=== PATIENT | female | born 1985 | race African-American/Black ===

== ENCOUNTER 2020-09-14 02:53 | Emergency (ER) | payer SELFPAY ==
--- NOTE | 2020-09-14 03:16 | ED General ---
General Stated Complaint: ANXIETY Source of Information: Patient History of Present Illness Date Seen by Provider: Sep 14, 2020 Time Seen by Provider: 03:00 Initial Comments 35 y/o female presents via EMS w c/o shortness of air and anxiety. States that she misses her mother (who in January) and with Thanksgiving passing recently it made it worse. Denies recent illness, fever or chills or cough. History of anxiety and panic attacks, was on medication, but no longer. Similar symptoms in the past. Allergies and Home Medications Allergies Coded Allergies: No Known Drug Allergies (Unverified , 09/14/20) Home Medications Hydroxyzine Pamoate 25 Mg Capsule, 25 MG PO Q8H PRN for ANXIETY Prescribed by: JERALD FERNANDEZ on 09/14/20 0320 Patient Home Medication List Home Medication List Reviewed: Yes Review of Systems Review of Systems Constitutional: No dizziness, No fever, No malaise, No weakness EENTM: No blurred vision, No double vision, No vision loss, No nose congestion, No throat pain, No throat swelling Respiratory: see HPI; No cough, No hemoptysis, No orthopnea, No phlegm; short of breath; No stridor, No wheezing Cardiovascular: No chest pain, No edema, No palpitations, No syncope Gastrointestinal: No abdominal pain, No nausea, No vomiting Musculoskeletal: No back pain, No joint pain Skin: No change in color, No rash Psychiatric/Neurological: Anxiety, Depressed, Emotional Problems Past Mtuwqfo-Ewksrb-Rfjoir Hx Past Med/Social Hx: Reviewed Nursing Past Med/Soc Hx Patient Social History Recent Foreign Travel: No Contact w/Someone Who Travel: No Physical Exam Vital Signs Capillary Refill : Height, Weight, BMI Height: '" Weight: lbs. oz. kg; BMI Method: General Appearance: Anxious HEENT: PERRL/EOMI, Normal ENT Inspection Neck: Full Range of Motion, Normal Inspection Respiratory: Chest Non Tender, Lungs Clear, Normal Breath Sounds, No Accessory Muscle Use, No Respiratory Distress, Other (rapid breathing) Cardiovascular: No Edema, No Gallop, No JVD, Tachycardia Gastrointestinal: Non Tender, Soft; No Distended, No Guarding, No Tenderness Extremity: Normal Capillary Refill, Normal Inspection, Normal Range of Motion, Non Tender, No Calf Tenderness, No Pedal Edema Progress/Results/Core Measures Suspected Sepsis SIRS Temperature: Pulse: Respiratory Rate: Blood Pressure / Mean: Results/Orders My Orders Orders - JERALD FERNANDEZ DO Diphenhydramine Injection (Benadryl Inje (09/14/20 03:30) Vital Signs/I&O Capillary Refill : Departure Impression Primary Impression: Anxiety Disposition: HOME, SELF-CARE Condition: Improved Departure-Patient Inst. Decision time for Depature: 03:30 Referrals: [facility],LOCAL PHYSICIAN (PCP) Primary Care Physician Patient Instructions: Anxiety, Adult (DC) Add. Discharge Instructions: Follow up with Mental Health @ [facility] this week Scripts Hydroxyzine Pamoate (Vistaril) 25 Mg Capsule 25 MG PO Q8H PRN for ANXIETY, #20 CAP Prov: JERALD FERNANDEZ DO 09/14/20 JERALD FERNANDEZ DO Sep 14, 2020 03:16
[2020-09-14] MEDS ORDERED: HYDR25CA PO (03:20)
[2020-09-14] MEDS ORDERED: diphenhydrAMINE 50 MG/ML INJ (BENADRYL) IVP ONE (03:30)
[2020-09-14 03:55] VITALS: BP 120/91
== END 2020-09-14 03:55 | disposition home or self-care (01) ==
LOC: ER FS 02:57
DX: F41.9 Anxiety disorder, unspecified (principal)
CPT/HCPCS: 99284